=== PATIENT | female | born 1940 | race Caucasian/White ===

== ENCOUNTER 2016-10-20 14:42 | Emergency (ER) | payer OTHER ==
[~2016-10-20] VITALS: Ht 160 cm; Wt 45.4 kg
[2016-10-20 14:59] VITALS: BP 128/73; PULSE 70; RESP 16; TEMP 96.7; O2SAT 96
[2016-10-20] MEDS ORDERED: SULFAMETHOXAZOLE/TRIMETHOPR DS 1 TABLET PO ONE (15:30)
[2016-10-20] MEDS ORDERED: AMOXICILLIN/CLAVULANATE POTASSIUM 875 MG TABLET PO ONE (15:30)
[2016-10-20] MEDS ORDERED: DIPH-TET Vacc 0.5 ML VIAL I.M. ONE (15:45)
[2016-10-20 16:00] VITALS: BP 136/82; PULSE 64; RESP 18; TEMP 97.9; O2SAT 100
== END 2016-10-20 16:00 | disposition home or self-care (01) ==
LOC: SED 14:42
DX: S61.551A Open bite of right wrist, initial encounter (principal); L03.113 Cellulitis of right upper limb; W55.01XA Bitten by cat, initial encounter; Y93.89 Activity, other specified; Y99.8 Other external cause status; Y92.89 Other specified places as the place of occurrence of the external cause
CPT/HCPCS: 90714; 99283